=== PATIENT | female | born 1980 | race Caucasian/White ===

== ENCOUNTER 2023-10-08 08:14 | Day surgery (SDC) | payer OTHER ==
[~2023-10-08 08:14] MED LIST: Sodium Chloride 0.9% 10 ML Syringe FLUSH PRN; Sodium Chloride 0.9% 10 ML Syringe FLUSH SCH
[2023-10-08] MEDS: Lactated Ringers 1,000 ML IV SCH (08:40)
[2023-10-08] MEDS ORDERED: Lidocaine 1% 4 ML ONE (08:46)
[2023-10-08] MEDS ORDERED: Midazolam 1 MG/ML 2 ML SDV ONE (08:46)
[2023-10-08] MEDS ORDERED: Propofol 200 MG/20 ML SDV ONE ×5 (08:46→11:37)
[2023-10-08] MEDS ORDERED: fentaNYL 100 MCG/2 ML SDV ONE (08:46)
[2023-10-08] MEDS ORDERED: ePHEDrine 50 MG/ML SDV ONE (09:20)
[2023-10-08] MEDS ORDERED: Ondansetron 4 MG/2 ML SDV ONE (10:04)
[2023-10-08] MEDS ORDERED: Dexamethasone 4 MG/ML SDV ONE (10:04)
[2023-10-08] MEDS ORDERED: Lactated Ringers 1,000 ML ONE (10:44)
== END 2023-10-08 12:42 | disposition home or self-care (01) ==
LOC: JD.SDS 08:14
PROVIDERS: ATTEND Student in an Organized Health Care Education/Training Program
DX: K64.8 Other hemorrhoids (principal); K64.4 Residual hemorrhoidal skin tags; J45.909 Unspecified asthma, uncomplicated; I10 Essential (primary) hypertension; K21.9 Gastro-esophageal reflux disease without esophagitis; Z87.891 Personal history of nicotine dependence; Z79.899 Other long term (current) drug therapy; Z88.2 Allergy status to sulfonamides; Z88.0 Allergy status to penicillin; Z91.040 Latex allergy status
CPT/HCPCS: 45378; J1100; J2250; J2405; J2704; J3010; J7120; 00811; J3490

== ENCOUNTER 2024-02-16 09:00 | Day surgery (SDC) | payer OTHER ==
[~2024-02-16 09:00] MED LIST changes: +HYDROmorphone 0.5 MG/0.5 ML Syringe IVPUSH PRN; +Lactated Ringers 1,000 ML IV SCH; +Ondansetron 4 MG/2 ML SDV IVPUSH PRN; +fentaNYL 100 MCG/2 ML SDV IVPUSH PRN
[2024-02-16] MEDS ORDERED: Lidocaine 1% 8 ML ONE (09:35)
[2024-02-16] MEDS ORDERED: Propofol 200 MG/20 ML SDV ONE ×2 (09:35→09:45)
== END 2024-02-16 10:35 | disposition home or self-care (01) ==
LOC: JD.SDS 09:00
PROVIDERS: ATTEND Surgery
DX: K31.89 Other diseases of stomach and duodenum (principal); K21.00 Gastro-esophageal reflux disease with esophagitis, without bleeding; K31.7 Polyp of stomach and duodenum; K44.9 Diaphragmatic hernia without obstruction or gangrene; K22.70 Barrett's esophagus without dysplasia; E66.9 Obesity, unspecified; Z88.8 Allergy status to other drugs, medicaments and biological substances; Z88.2 Allergy status to sulfonamides; Z91.040 Latex allergy status; Z79.899 Other long term (current) drug therapy; Z68.41 Body mass index [BMI] 40.0-44.9, adult
CPT/HCPCS: 43239; J2704; J3490; J7120